=== PATIENT | male | born 1970 | race Caucasian/White ===

== ENCOUNTER 2020-09-12 17:10 | Emergency (ER) | payer MEDICARE ==
[~2020-09-12 17:10] MED LIST: ROBITUSSIN AC480 ML PO; ZITHROMAX250 MG PO
[2020-09-12] MEDS ORDERED: BACTRIM 400-801 EACH PO (22:21)
== END 2020-09-12 22:41 | disposition home or self-care (01) ==
LOC: ER1 17:10
DX: L02.414 Cutaneous abscess of left upper limb (principal)
CPT/HCPCS: 10060; 87070; 87205; 99283